=== PATIENT | female | born 1950 | race Caucasian/White ===

== ENCOUNTER → 2018-02-07 | Outpatient (CLI) | payer MEDICARE, BC ==
[~2018-02-07] MED LIST: ALBU90OI; ALEN70 PO; ATEN25 PO; BACL10 PO; CYCL10 PO; Cefpodoxime Pr100 MG PO; DESV50 PO; DILT120ERA PO; DILT30 PO; DIPH12.5EL; DIVA500EC; ESCI10; ESTR25VT PV; FLUO10; FOLI400; GABA300 PO; GUAN1; HCTZ PO; HYDPAM50 PO; KETO10; LAMO25; LEVSOD100 PO; LEVSOD112; LORA1; METH10 PO; METPHE20CR PO; MIRT15 PO; MULVIT; OLAN2.5; ONDA4ODT SL; ONDA8; OXYACE5T PO; PROC25S; PROM25 PO; QUET200; QUETIAPINE FUM100 MG PO; QUETIAPINE FUM400 MG PO; RANI150 PO; RISE35; RISP1 PO; RXCYCL10 PO; SPIHYD; SUCR1 PO; SYMBYAX; Synthroid112 MCG PO; VITAMIN B-12 PO; Vitamin C100 M1
== END | disposition home or self-care (01) ==
LOC: LAB EV 11:20 → LAB SHORT 11:20
DX: J18.1 Lobar pneumonia, unspecified organism (principal)
CPT/HCPCS: 87070; 87205

== ENCOUNTER → 2018-02-16 | Outpatient (CLI) | payer MEDICARE, BC ==
[2018-02-18 14:39] LABS: Stool Occult Bld Immuno 1 Negative (NEGATIVE)
== END | disposition home or self-care (01) ==
LOC: LAB EV 14:30
PROVIDERS: Internal Medicine
DX: K92.1 Melena (principal); R10.32 Left lower quadrant pain
CPT/HCPCS: 82274

== ENCOUNTER → 2018-10-12 | Outpatient (CLI) | payer MEDICARE, BC | LOC: LAB SHORT 14:00 → LAB EV 14:00 | DX: N30.00 Acute cystitis without hematuria (principal) | CPT/HCPCS: 87077; 87086; 87186 ==

== ENCOUNTER 2019-05-21 06:12 | Day surgery (SDC) | payer MEDICARE, BC ==
[~2019-05-21] VITALS: Ht 149.9 cm; Wt 40.5 kg
[~2019-05-21 06:12] MED LIST changes: +DILT120 PO; +GABA100 PO; +LEVO-T112 MCG PO; +ONDA4ODT PO; +Seroquel Xr400 MG PO; +Zantac150 MG PO
[2019-05-21] MEDS ORDERED: GABA300 PO (06:39)
--- NOTE | 2019-05-21 06:48 | NUR ---
History, Chart, Medications and Allergies reviewed before start of procedure. Patient confirms NPO status and agrees with scheduled surgery. Lungs clear T/O to Auscultation. Pre-Op teaching done. Pt verbalizes understanding. Patient reports completing Chlorhexadine shower X2 prior to admission to hospital. NO JEWELRY, CONTACTS OR GLASSES, OR HEARING DEVICES.
--- NOTE | 2019-05-21 07:16 | NUR ---
OR REPORT COMPLETED AT BEDSIDE WITH RODNEY Flores RN.
--- NOTE | 2019-05-21 08:09 | NUR ---
05/21/19 0809 Miguel A Woods CATH PLACED PER CIARA NOELA
--- NOTE | 2019-05-21 12:49 | NUR ---
Discharge instructions reviewed with patient. Patient verbalizes understanding. Copy given to patient to take home. PT VERBALIZED READY TO GO HOME, [facility] (SON) IS HERE AND RIDE HOME. VSS. DRG X3 TO ABD WITH CLEAR DRG OVER GAUZE C/D/I. ICE PACK GIVEN AND APPLIED PT LEFT. Discharged via wheelchair to private car for ride home.
== END 2019-05-21 23:11 | disposition home or self-care (01) ==
LOC: ORSCMMR 06:12 → ORD 07:30 → ORSCMMR 07:30 → ORD 10:45 → ORSCMMR 23:11
PROVIDERS: Surgery
PROC: 0YUE4JZ Supplement Bilateral Femoral Region with Synthetic Substitute, Percutaneous Endoscopic Approach (ICD-10-PCS; principal; 2019-05-21 07:30)
PROC: 8E0W4CZ Robotic Assisted Procedure of Trunk Region, Percutaneous Endoscopic Approach (ICD-10-PCS; principal; 2019-05-21 07:30)
DX: K41.20 Bilateral femoral hernia, without obstruction or gangrene, not specified as recurrent (principal); I10 Essential (primary) hypertension; E03.9 Hypothyroidism, unspecified; G47.33 Obstructive sleep apnea (adult) (pediatric); J44.9 Chronic obstructive pulmonary disease, unspecified; Z99.81 Dependence on supplemental oxygen; G40.909 Epilepsy, unspecified, not intractable, without status epilepticus; Z79.899 Other long term (current) drug therapy
CPT/HCPCS: 49659; S2900; C1781; J0690; J1100; J1885; J2250; J2405; J2704; J2710; J3010; J7120

== ENCOUNTER → 2019-10-28 | Outpatient (CLI) | payer MEDICARE, BC ==
[2019-10-28 10:22] LABS: Source, Urine Clean Catch
[2019-10-28 13:07] LABS: White Blood Cells, Urine 25-50 /hpf (0-5)
[2019-10-28 13:08] LABS: Red Blood Cells, Urine 0-2 /hpf (0-2)
[2019-10-28 13:09] LABS: Amorphous Light (0-Heavy); Bacteria Many /hpf; Squamous Epithelial Cells Few /hpf (Few)
== END | disposition home or self-care (01) ==
LOC: LAB SHORT 09:00 → LAB UCHC 09:00
PROVIDERS: Internal Medicine
DX: R30.9 Painful micturition, unspecified (principal)
CPT/HCPCS: 81015; 87077; 87086; 87186

== ENCOUNTER → 2021-07-06 | Outpatient (CLI) | payer MEDICARE, BC | END | disposition home or self-care (01) | LOC: LAB SHORT 16:14 → LAB 16:14 | DX: N39.0 Urinary tract infection, site not specified (principal) | CPT/HCPCS: 87077; 87086; 87186 ==

== ENCOUNTER → 2021-08-03 | Outpatient (CLI) | payer MEDICARE, BC | END | disposition home or self-care (01) | LOC: LAB SHORT 16:40 → LAB 16:40 | DX: N39.0 Urinary tract infection, site not specified (principal) | CPT/HCPCS: 87086 ==

== ENCOUNTER 2021-11-14 16:33 | Emergency (ER) | payer MEDICARE, BC ==
[~2021-11-14] VITALS: Ht 149.9 cm; Wt 41.3 kg
[2021-11-14 17:02] LABS: BASOPHILS ABSOLUTE AUTO 0.08 K/mm3 (0.00-0.23); BASOPHILS PERCENT AUTO 1 % (0-2); EOSINOPHILS ABSOLUTE AUTO 0.37 K/mm3 (0.00-0.68); EOSINOPHILS PERCENT AUTO 4 % (0-6); Hematocrit 42.3 % (33.0-51.0); Hemoglobin 13.6 g/dL (11.5-16.0); IMMATURE GRAN ABSOLUTE AUTO 0.02 K/mm3 (0.00-0.10); IMMATURE GRAN PERCENT AUTO 0 % (0-1); LYMPHOCYTES ABSOLUTE AUTO 3.17 K/mm3 (0.84-5.20); LYMPHOCYTES PERCENT AUTO 37 % (21-46); MONOCYTES ABSOLUTE AUTO 0.71 K/mm3 (0.16-1.47); MONOCYTES PERCENT AUTO 8 % (4-13); Mean Corpuscular HGB 29.6 pg (26.0-34.0); Mean Corpuscular HGB Conc 32.2 g/dL (31.5-36.5); Mean Corpuscular Volume 92 fL (80-100); Mean Platelet Volume 9.8 fL (9.1-12.4); NEUTROPHILS ABSOLUTE AUTO 4.23 K/mm3 (1.96-9.15); NEUTROPHILS PERCENT AUTO 49 % (41-73); Platelet Count 321 K/mm3 (150-400); RDW Coefficient Variation 14.6 % (11.7-14.2); RDW Standard Deviation 49.6 fL (35.1-46.3); Red Blood Cell Count 4.59 M/mm3 (3.80-5.20); White Blood Cell Count 8.58 K/mm3 (4.00-11.30)
[2021-11-14 17:37] LABS: Alanine Aminotransfer (ALT/SGP 24 U/L (12-78); Albumin, Blood 3.4 g/dL (3.4-5.0); Alk Phos 80 U/L (50-136); Anion Gap 5 mmol/L (6-16); Aspartate Aminotrans (AST/SGOT 29 U/L (12-37); Bilirubin, Total 0.4 mg/dL (0.1-1.0); Blood Urea Nitrogen 13 mg/dL (8-24); Bun/Creatinine Ratio 17.4 (12.0-20.0); CO2, Blood 25 mmol/L (21-32); Calcium, Blood 8.6 mg/dL (8.5-10.1); Chloride, Blood 109 mmol/L (98-108); Creatinine, Blood 0.75 mg/dL (0.40-1.00); Globulin, Blood 3.4 g/dL (2.2-4.0); Glomerular Filtration Rate >60 (60-); Glucose, Blood 88 mg/dL (70-99); Potassium, Blood 3.9 mmol/L (3.5-5.5); Sodium, Blood 139 mmol/L (136-145); Total Protein, Blood 6.8 g/dL (6.4-8.2)
== END 2021-11-14 20:22 | disposition home or self-care (01) ==
LOC: ER 16:33
PROVIDERS: Student in an Organized Health Care Education/Training Program
DX: R07.9 Chest pain, unspecified (principal); R42 Dizziness and giddiness; Z87.891 Personal history of nicotine dependence; Z79.899 Other long term (current) drug therapy
CPT/HCPCS: 36415; 71045; 80053; 84484; 85025; 93005; 93010; 99284-25

== ENCOUNTER 2023-01-02 06:38 | Day surgery (SDC) | payer MEDICARE, BC ==
[~2023-01-02] VITALS: Ht 149.9 cm; Wt 43.6 kg
--- NOTE | 2023-01-02 08:00 | NUR ---
01/02/23 0800 EUSEBIO ÁLVAREZ CALL LIGHT WITHIN REACH.
--- NOTE | 2023-01-02 09:25 | NUR ---
01/02/23 0925 Elisabeth Boothe WOULD NOT IMPLANT DUE TO PATIENT'S POOR BONE DENSITY.
--- NOTE | 2023-01-02 10:44 | NUR ---
01/02/23 [email or web address] Jaymie Marie TOTAL OF 87.5 MCG FENTANYL GIVEN IN PACU, 12.5 MCG WASTED WITH GENIA.RN. THEN ANOTHER VIAL OF FENTANYL PULLED FROM XIS AND 50 MCG FENTANYL GIVEN FOR PAIN IN STEPDOWN. TOTAL OF 137.5 MCG GIVEN.
[2023-01-02 11:28] VITALS: BP 134/72
== END 2023-01-02 11:49 | disposition home or self-care (01) ==
LOC: ORSCSDS 06:38
PROVIDERS: Orthopaedic Surgery
PROC: 0RQT0ZZ Repair Left Carpometacarpal Joint, Open Approach (ICD-10-PCS; principal; 2023-01-02 08:00)
DX: M18.11 Unilateral primary osteoarthritis of first carpometacarpal joint, right hand (principal); Z87.891 Personal history of nicotine dependence; I10 Essential (primary) hypertension; B19.20 Unspecified viral hepatitis C without hepatic coma; Z79.899 Other long term (current) drug therapy; K21.9 Gastro-esophageal reflux disease without esophagitis; E03.9 Hypothyroidism, unspecified; G40.909 Epilepsy, unspecified, not intractable, without status epilepticus; Z99.81 Dependence on supplemental oxygen
CPT/HCPCS: A9270; C1713; J0690; J1100; J2405; J2704; J2795; J3010; J7120

== ENCOUNTER → 2023-04-15 | Outpatient (CLI) | payer MEDICARE, BC ==
[2023-04-15 17:35] LABS: BASOPHILS ABSOLUTE AUTO 0.05 K/mm3 (0.00-0.23); BASOPHILS PERCENT AUTO 1 % (0-2); EOSINOPHILS ABSOLUTE AUTO 0.03 K/mm3 (0.00-0.68); EOSINOPHILS PERCENT AUTO 0 % (0-6); Hematocrit 40.2 % (33.0-51.0); Hemoglobin 12.3 g/dL (11.5-16.0); IMMATURE GRAN ABSOLUTE AUTO 0.03 K/mm3 (0.00-0.10); IMMATURE GRAN PERCENT AUTO 0 % (0-1); LYMPHOCYTES ABSOLUTE AUTO 2.27 K/mm3 (0.84-5.20); LYMPHOCYTES PERCENT AUTO 25 % (21-46); MONOCYTES ABSOLUTE AUTO 0.75 K/mm3 (0.16-1.47); MONOCYTES PERCENT AUTO 8 % (4-13); Mean Corpuscular HGB 27.7 pg (26.0-34.0); Mean Corpuscular HGB Conc 30.6 g/dL (31.5-36.5); Mean Corpuscular Volume 91 fL (80-100); Mean Platelet Volume 10.8 fL (9.1-12.4); NEUTROPHILS ABSOLUTE AUTO 5.94 K/mm3 (1.96-9.15); NEUTROPHILS PERCENT AUTO 66 % (41-73); Platelet Count 357 K/mm3 (150-400); RDW Coefficient Variation 15.3 % (11.7-14.2); RDW Standard Deviation 50.5 fL (35.1-46.3); Red Blood Cell Count 4.44 M/mm3 (3.80-5.20); White Blood Cell Count 9.07 K/mm3 (4.00-11.30)
[2023-04-15 19:54] LABS: Alanine Aminotransfer (ALT/SGP 18 U/L (12-78); Albumin, Blood 3.3 g/dL (3.4-5.0); Alk Phos 77 U/L (50-136); Anion Gap 4 mmol/L (6-16); Aspartate Aminotrans (AST/SGOT 13 U/L (12-37); Bilirubin, Total 0.3 mg/dL (0.1-1.0); Blood Urea Nitrogen 17 mg/dL (8-24); CHOL/HDL RATIO 2.6; CO2, Blood 27 mmol/L (21-32); Calcium, Blood 8.7 mg/dL (8.5-10.1); Chloride, Blood 107 mmol/L (98-108); Cholesterol 150 mg/dL (50-200); Creatinine, Blood 0.74 mg/dL (0.40-1.00); Globulin, Blood 3.3 g/dL (2.2-4.0); Glomerular Filtration Rate 86 (60-); Glucose, Blood 80 mg/dL (70-99); HDL Cholesterol 58 mg/dL (>39); Low Density Lipoprotein Chol 60 mg/dL (0-110); Potassium, Blood 4.5 mmol/L (3.5-5.5); Sodium, Blood 138 mmol/L (136-145); Total Protein, Blood 6.6 g/dL (6.4-8.2); Triglycerides 161 mg/dL (30-160); Very Low Density Lipoprot Chol 32 mg/dL (6-32)
== END ==
LOC: LAB SHORT 16:12 → LAB 16:12
PROVIDERS: Family Medicine
DX: E03.9 Hypothyroidism, unspecified (principal); M81.0 Age-related osteoporosis without current pathological fracture
CPT/HCPCS: 80053; 80061; 82306; 84443; 85025